=== PATIENT | male | born 1995 | race Caucasian/White ===

== ENCOUNTER 2020-04-08 13:48 | Outpatient (CLI) | payer OTHER, SELFPAY ==
[2020-04-08 14:28] LABS: Alanine Aminotransferase 61 U/L (4-50); Albumin Level 4.8 g/dL (3.5-5.1); Alkaline Phosphatase 54 U/L (38-126); Anion Gap 9 mmol/L (8-16); Aspartate Amino Transferase 34 U/L (17-59); Bilirubin,Total 0.5 mg/dL (0.2-1.3); Blood Urea Nitrogen 13 mg/dL (9-20); Calcium 9.8 mg/dL (8.4-10.2); Carbon Dioxide 30 mmol/L (22-30); Chloride 102 mmol/L (98-107); Estimated Glomerular Filt Rate > 60; Glucose 90 mg/dL (75-110); Potassium 3.9 mmol/L (3.4-5.0); Sodium 141 mmol/L (137-145)
== END 2020-04-08 13:49 | disposition home or self-care (01) ==
LOC: ANHLAB 13:50
PROVIDERS: PCP Family Medicine; Visit Provider Family Medicine
DX: B36.9 Superficial mycosis, unspecified (principal); R21 Rash and other nonspecific skin eruption
CPT/HCPCS: 36415; 80053

== ENCOUNTER 2020-05-02 14:21 | Outpatient (CLI) | payer OTHER, SELFPAY ==
[2020-05-02 15:49] LABS: Alanine Aminotransferase 54 U/L (4-50); Albumin Level 4.4 g/dL (3.5-5.1); Alkaline Phosphatase 64 U/L (38-126); Aspartate Amino Transferase 29 U/L (17-59); Bilirubin,Total 0.6 mg/dL (0.2-1.3)
== END 2020-05-02 14:22 | disposition home or self-care (01) ==
PROVIDERS: PCP Family Medicine; Visit Provider Nurse Practitioner Family
DX: R74.01 Elevation of levels of liver transaminase levels (principal)
CPT/HCPCS: 36415; 80076

== ENCOUNTER 2020-07-02 15:04 | Outpatient (CLI) | payer OTHER, SELFPAY ==
[2020-07-02 15:51] LABS: Alanine Aminotransferase 24 U/L (4-50)
[2020-07-02 15:53] LABS: Rheumatoid Factor < 8.6 IU/ML (<12)
[2020-07-02 16:20] LABS: Erythrocyte Sedimentation Rate 2 mm/hr (0-20)
== END 2020-07-02 15:05 | disposition home or self-care (01) ==
LOC: ANHLAB 15:06
PROVIDERS: PCP Family Medicine; Visit Provider Nurse Practitioner Family
DX: R74.01 Elevation of levels of liver transaminase levels (principal); M25.50 Pain in unspecified joint
CPT/HCPCS: 36415; 84460; 85652; 86038; 86430